=== PATIENT | male | born 1955 | race Caucasian/White ===

== ENCOUNTER 2018-01-30 13:34 | Day surgery (SDC) | payer BC ==
[2018-01-29 15:04] VITALS: BMI 25.8
[2018-01-30] MEDS ORDERED: ZOLPIDEM TARTRATE 5 MG TABLET PO PRN (16:34)
[2018-01-30] MEDS ORDERED: ACETAMINOPHEN 325 MG TABLET (FP) PO PRN ×2 (16:34→16:41)
[2018-01-30] MEDS ORDERED: oxyCODONE HCL 5 MG TABLET PO PRN (16:40)
--- NOTE | 2018-01-30 16:41 | OP ---
Operative Note - Note: Operative Date: 01/30/18 Pre-Operative Diagnosis: bph with luts and aur Operation: turp/tuvp Findings: trilobar prostate hypertrophy Post-Operative Diagnosis: Same as Pre-op Surgeon: Nghia Rees Anesthesia: General Specimens Removed: prostate chips Estimated Blood Loss (mls): 50 Drains, Volume Out (mls): 0 Blood Volume Replaced (mls): 0 Fluid Volume Replaced (mls): 0 Operative Report Dictated: Yes
[2018-01-30] MEDS ORDERED: HYDROmorphone HCl 2 MG/ML VIAL IVPUSH ONE (16:45)
[2018-01-30] MEDS ORDERED: GENTAMICIN 80MG PREMIX BAG IVPB ONE (16:47)
--- NOTE | 2018-01-30 17:04 | PREOP ---
DATE OF ADMISSION: DATE OF DICTATION: 01/30/2018 HISTORY OF PRESENT ILLNESS: Patient is a 62-year-old male with history of prostatism and urinary retention. Patient has had history of prostatism including frequency, urgency, nocturia, and terminal dribbling. He recently developed acute urinary retention which required a Hilton catheter. Multiple attempts at trials of voiding were unsuccessful. The patient does have history of high blood pressure and dyslipidemia. PHYSICAL EXAMINATION: Chest: Clear. Abdomen: Soft. Genitalia: Atraumatic. Prostate 3+, firm, and nontender. Thallus is normal. Meatus is adequate. Saddle sensation is present. Extremities: Reveal full range of motion with no cyanosis, clubbing, or edema. PSA was 1.4. Presently the patient has a Hilton catheter which is patent. The urine is clear. The patient did undergo a cystoscopy 2 weeks ago that revealed grade 3 trabeculated bladder with trilobar hypertrophy of the prostate. He is admitted for a transurethral vaporization of the prostate. All possible side effects and complications were explained fully to the patient. He agrees to the procedure. Tiera [id number]
--- NOTE | 2018-01-30 18:58 | OP ---
DATE OF OPERATION: 01/30/2018 PREOPERATIVE DIAGNOSIS: Benign prostatic hypertrophy, acute urinary retention, recurrent urosepsis. POSTOPERATIVE DIAGNOSIS: Benign prostatic hypertrophy, acute urinary retention, recurrent urosepsis. OPERATIVE PROCEDURE: Cystourethroscopy, transurethral resection of prostate, and transurethral vaporization of prostate. ANESTHESIA: General. DESCRIPTION OF PROCEDURE: Under above stated anesthesia, patient was prepped and draped in the usual sterile manner. He was placed in the dorsal lithotomy position. A previous Hilton was removed. Cystoscopy revealed trilobar hypertrophy of the prostate that was lateral lobe kissing. The bladder revealed a grade 2 to 3 trabeculation and no lesions were noted, no calculi were seen. A resectoscope was inserted. Resection of the prostate was commenced in the usual fashion. Afterwards a VaporTrode was introduced, and vaporization of the prostate was commenced down to the capsule, the right lobe as well as the left lobe was removed. The median lobe was vaporized to the capsule. Prostate chips were evacuated with an PodPoster evacuator. Hemostasis was secured with electrocoagulation. No active bleeding was noted, therefore the bladder was emptied, the scope was removed. A 24 [place] 3-way, 30 mL Hilton was inserted. This was connected to continuous bladder irrigation. The patient tolerated the procedure well. He returned to the recovery room in good condition. Tiera [id number]
[2018-01-30] MEDS ORDERED: ACETAMINOPHEN INJECTION 100 ML IVPB ONE (19:00)
[2018-01-30] MEDS: ACETAMINOPHEN 1000 MG/100 ML VIAL (NON FORMULARY) IVPB ONE (19:17)
[2018-01-30] MEDS ORDERED: LACTATED RINGERS SOLUTION 1,000 ML IV ONE (19:45)
[2018-01-30] MEDS ORDERED: MORPHINE SULFATE 2 MG/ML VIAL IVPUSH PRN (19:45)
[2018-01-30] MEDS: CEPHALEXIN MONOHYDRATE 500 MG CAPSULE (UD) PO SCH (22:28)
[2018-01-31 01:58] VITALS: TEMP 98.5
[2018-01-31] MEDS: CEPHALEXIN MONOHYDRATE 500 MG CAPSULE (UD) PO SCH ×2 (06:54→15:54)
[2018-01-31] MEDS ORDERED: PT OWN MED DRAWER 7, Y5N ONE (08:28)
[2018-01-31] MEDS ORDERED: TAMSULOSIN HCL 0.4 MG CAP.ER.24H (FP) PO SCH (08:30)
[2018-01-31] MEDS: ACETAMINOPHEN 1000 MG/100 ML VIAL (NON FORMULARY) IVPB ONE (11:11)
--- NOTE | 2018-01-31 13:14 | PN ---
Progress Note (short form) - Note Progress Note: Anesthesia Pt seen and examined S:alert and awake O: Vital Signs Temperature 98.5 F 01/31/18 06:00 Pulse Rate 73 01/31/18 06:00 Respiratory Rate 18 01/31/18 06:00 Blood Pressure 111/59 L 01/31/18 06:00 O2 Sat by Pulse Oximetry (%) 100 01/30/18 20:20 A/P s/p cysto TURP Doing well post op Continue current care Anton Arce MD
--- NOTE | 2018-01-31 13:39 | PN ---
Progress Note (short form) - Note Progress Note: UROLOGY NOTE 62 Y/O Male patient with history of BPH S/P TUVP 12/31/2017 on CBI doing well Plan: D/C CBI and connect neal catheter to leg bag.
[2018-01-31 14:59] VITALS: BP 143/73; PULSE 85
--- NOTE | 2018-02-05 15:34 | PATH ---
Surgical Pathology Report Patient Name: VICKIE HOOPER Med. Rec. #: [id number] /Age/Gender: 1955 (Age: 62) / M Account: [id number] Location: AMBULATORY SURG Taken: 01/30/2018 Received: 01/31/2018 Reported: 02/05/2018 Physicians: Nghia Rees M.D. Specimen(s) Received PROSTATE CHIPS Clinical History BPH Final Diagnosis PROSTATE TISSUE, TRANSURETHRAL RESECTION OF THE PROSTATE: PROSTATE TISSUE SHOWING BENIGN PROSTATE HYPERPLASIA AND NONSPECIFIC GRANULOMATOUS PROSTATITIS. ADJACENT UROTHELIAL MUCOSA WITH FOCAL ACUTE AND CHRONIC INFLAMMATION. COMMENT: The granulomas are composed predominantly of histiocytes, lymphocytes, plasma cells, numerous neutrophils, occasional multinucleated giant cells, and eosinophils. AE1/AE3 stain is negative in the epithelioid histiocytes. PAS and AFB stains done on selected slides 1, 6, 10 failed to reveal organisms. Clinical correlation is recommended. Immunohistochemical stain AE1/AE3, and special stains PAS and AFB were performed and interpreted at [facility]. Electronically Signed Paula Denise M.D. Gross Description Received in formalin labeled "prostate tissue," is a 14 g, 9.5 x 8.5 x 0.6 cm aggregate of [place], firm to rubbery portions of tissue, consistent with prostate chips. A branch service representative portion is submitted in 10 cassettes. DL/01/31/2018 saudi01/31/2018
== END 2018-01-31 17:07 | disposition home or self-care (01) ==
LOC: JASUSAT 13:34 → JASU-SURG 13:34 → J5S 20:39 → JASUSAT 01-31 17:07
PROVIDERS: ATTEND Urology
PROC: 0V507ZZ Destruction of Prostate, Via Natural or Artificial Opening (ICD-10-PCS; principal; 2018-01-30 15:30)
DX: N40.1 Benign prostatic hyperplasia with lower urinary tract symptoms (principal); R33.9 Retention of urine, unspecified
CPT/HCPCS: 88305-TC; 88312-TC; 88341-TC; 88342-TC; 94010; 94760; J0131